=== PATIENT | female | born 1985 | race Two or more races ===

== ENCOUNTER 2022-10-21 00:21 | Emergency (ER) | payer BC ==
[~2022-10-21] VITALS: Ht 157.5 cm; Wt 68.0 kg
--- NOTE | 2022-10-21 00:41 | NUR ---
BIB family member with c/o abd pain, assisted into gown and placed on monitor. Patient informed of plan of care, MD at bedside for exam at this time. No s/s of any distress noted, will continue to monitor.
[2022-10-21] MEDS ORDERED: ONDANSETRON 4 MG/2 ML VIAL IV ONE (01:00)
[2022-10-21] MEDS ORDERED: IV NORMAL SALINE 1000 ML BAG IV ONE (01:00)
[2022-10-21] MEDS ORDERED: HYDROMORPHONE 1 MG/1 ML DISP.SYRIN IV ONE (01:00)
[2022-10-21] MEDS ORDERED: ONDANSETRON 4 MG/2 ML VIAL ONE (01:03)
[2022-10-21] MEDS ORDERED: HYDROMORPHONE 1 MG/1 ML DISP.SYRIN ONE (01:03)
--- NOTE | 2022-10-21 01:13 | NUR ---
#20g established in left ac area, blood collected and sent to lab, Patient also medicated as per order, IVF infusing as ordered.
[2022-10-21 01:16] LABS: HEMATOCRIT 40.8 % (31.2-41.9); MEAN CORPUSCULAR HEMOGLOBIN 31.1 uug (24.7-32.8); MEAN CORPUSCULAR VOLUME 92.6 fL (75.5-95.3); PLATELET COUNT (AUTO) 291 K/uL (179-408)
[2022-10-21 01:33] LABS: CARBON DIOXIDE 27 mmol/L (21-32); CHLORIDE 102 mmol/L (98-107); CREATININE 0.8 mg/dL (0.6-1.3); GLUCOSE 115 mg/dL (74-106); POTASSIUM 3.5 mmol/L (3.5-5.1); UREA NITROGEN, BLOOD 11 mg/dL (7-18)
[2022-10-21 01:38] LABS: ALANINE AMINOTRANSFERASE 29 U/L (14-59); ALKALINE PHOSPHATASE 61 U/L (50-136); ASPARTATE AMINOTRANSFERASE 21 U/L (15-37); BILIRUBIN,DIRECT < 0.1 mg/dL (0.0-0.2); BILIRUBIN,TOTAL 0.2 mg/dL (0.2-1.0); TOTAL PROTEIN, SERUM 7.4 g/dL (6.4-8.2)
[2022-10-21 01:52] LABS: LIPASE 103 U/L (73-393)
--- NOTE | 2022-10-21 01:54 | NUR ---
Patient up and assisted to the bathroom, aware of need for urine specimen.
[2022-10-21 02:20] LABS: *BILIRUBIN,URIN NEGATIVE (NEGATIVE); *CLARITY,URINE CLEAR (CLEAR); *COLOR,URINE LIGHT YELLOW (YELLOW); *KETONES,URINE TRACE (NEGATIVE); *UROBILINOGEN,URINE 0.2 E.U./dl (NORMAL); LEUKOCYTE ESTERASE ,URINE NEGATIVE (NEGATIVE); NITRITE, URINE NEGATIVE (NEGATIVE); UGLUCOSE NEGATIVE (NEGATIVE)
[2022-10-21 02:21] LABS: *BLOOD, URINE TRACE (NEGATIVE); *URINE HCG, QUAL NEGATIVE (NEGATIVE)
[2022-10-21 02:56] LABS: BACTERIA,URINE NONE SEEN /HPF (NONE SEEN); RBC,URINE 0-3 /HPF (0-3); SQUAMOUS EPITHELIAL CELL,UR FEW /HPF (NONE SEEN); WBC,URINE NONE SEEN /HPF (0-3)
--- NOTE | 2022-10-21 03:02 | NUR ---
requested and given water. continues to await ultrasound exam. No vocied c/o at this time.
--- NOTE | 2022-10-21 04:15 | NUR ---
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 No voiced c/o pain or discomfort at this time.
--- NOTE | 2022-10-21 06:01 | NUR ---
patient continues to rest, remains easy to arouse. No voiced co at this time.
--- NOTE | 2022-10-21 06:05 | NUR ---
Ultrasound at bedside.
--- NOTE | 2022-10-21 06:16 | NUR ---
MD AT BEDSIDE TALKING TO PATIENT.
[2022-10-21] MEDS ORDERED: ONDA4TAB5 PO (06:23)
[2022-10-21] MEDS ORDERED: HYDR-3972 PO (06:23)
--- NOTE | 2022-10-21 06:34 | NUR ---
ACI GIVEN WITH RX, STATES UNDERSTANDING. HL REMOVED, REMAINS STABLE FOR DISCHARGE HOME WITH FAMILY.
[2022-10-21 06:41] VITALS: BP 127/84
== END 2022-10-21 06:48 | disposition home or self-care (01) ==
LOC: ER 00:21
DX: K80.70 Calculus of gallbladder and bile duct without cholecystitis without obstruction (principal); E88.81 Metabolic syndrome and other insulin resistance; D72.829 Elevated white blood cell count, unspecified; R03.0 Elevated blood-pressure reading, without diagnosis of hypertension
CPT/HCPCS: 99285; 96374; 76705; 96375; 80076; 80048; 81001; 84703; 83690; 83735; 85025; 36415; 93005; J2405; J1170; J7040; A4663

== ENCOUNTER 2022-11-28 03:47 | Emergency (ER) | payer BC ==
[~2022-11-28] VITALS: Ht 157.5 cm; Wt 68.0 kg
[~2022-11-28 03:47] MED LIST: HYDR-3972 PO; ONDA4TAB5 PO
--- NOTE | 2022-11-28 04:05 | NUR ---
Dr. Fermin evaluating patient at bedside. MSE in progress.
[2022-11-28] MEDS ORDERED: KETOROLAC TROMETHAMINE 30 MG INJ ONE (04:12)
[2022-11-28] MEDS ORDERED: KETOROLAC TROMETHAMINE 15 MG INJ IVP ONE (04:15)
[2022-11-28 04:25] LABS: HEMATOCRIT 45.2 % (31.2-41.9); MEAN CORPUSCULAR HEMOGLOBIN 31.1 uug (24.7-32.8); MEAN CORPUSCULAR VOLUME 92.2 fL (75.5-95.3); PLATELET COUNT (AUTO) 282 K/uL (179-408)
[2022-11-28 04:40] LABS: CREATININE 0.7 mg/dL (0.6-1.3); POTASSIUM 3.7 mmol/L (3.5-5.1)
[2022-11-28 04:47] LABS: BILIRUBIN,DIRECT 0.1 mg/dL (0.0-0.2); BILIRUBIN,TOTAL 0.3 mg/dL (0.2-1.0); TOTAL PROTEIN, SERUM 7.8 g/dL (6.4-8.2)
--- NOTE | 2022-11-28 05:45 | NUR ---
Ultrasound at bedside.
[2022-11-28] MEDS ORDERED: HYDROMORPHONE 1 MG/1 ML DISP.SYRIN ONE (05:57)
[2022-11-28] MEDS ORDERED: HYDROMORPHONE 1 MG/1 ML DISP.SYRIN IV ONE (06:00)
--- NOTE | 2022-11-28 06:33 | NUR ---
Patient discharged to home in stable condition. Written and verbal after care instructions given. Patient verbalizes understanding of instructions. Stressed follow up or return to ER for worsening s/s.
--- NOTE | 2022-11-28 06:34 | NUR ---
Dilaudid 0.25mg reassessment due at 06:45 marked as not done due to patient being discharged home at 06:31am. Prior to discharge, patient stated 0/10 pain. Patient in stable conditions, no signs of distress.
[2022-11-28 06:37] VITALS: BP 130/85
== END 2022-11-28 06:32 | disposition home or self-care (01) ==
LOC: ER 03:53
DX: K80.20 Calculus of gallbladder without cholecystitis without obstruction (principal)
CPT/HCPCS: 99285; 96374; 76705; 96375; 80076; 80048; 83690; 85025; 84702; 36415; J1885; J1170; A4663